=== PATIENT | male | born 1995 | race Caucasian/White ===

== ENCOUNTER 2018-04-12 18:14 | Emergency (ER) | payer OTHER, SELFPAY ==
[2018-04-12 18:15] VITALS: BP 134/81; PULSE 108; RESP 18; TEMP 37.7; O2SAT 100; BMI 28.2
--- NOTE | 2018-04-12 18:27 | ED.VISSUMM ---
- ER Visit Summary Date of Service: 04/12/18 Chief Complaint: Sent to ER from urgent care for treatment of peritonsillar abscess History of Present Illness: The patient is a 23 M who reports onset of illness yesterday with subjective fever, sore throat and apparent nonproductive cough. Denies rhinorrhea, nasal congestion or postnasal drainage. Denies earache. Denies change in voice. Denies difficulty opening or closing his mouth. Denies history rheumatic fever or heart murmur. Denies rash. Denies myalgias arthralgias. He apparently has slept more than normal today. Physical Examination: Vital signs noted and blood pressure is elevated 134/81, heart rate 108 and temperature is 99.9 which is elevated but not a fever. Pupils equal round reactive paradoxic muscle intact. Sclerae anicteric. Conjunctive is not injected. Ears normal. Nares patent no drainage. Uvula is midline. There is slight erythema of the right and left tonsil with swelling in the left tonsil. There is no evidence of peritonsillar cellulitis or abscess. There is no trismus. There is no change in voice. Trach is midline. There is no cervical lymphadenopathy. There is no stridor with auscultation of the neck. Heart is regular without murmur, gallop or rub. Lungs are clear to auscultation. There is no skin lesion or rash noted. Test Results: Patient had a rapid strep at the urgent care and was informed that was negative. Centor score is 0. Emergency Department Course and Treatment: Patient was told he has a viral tonsillitis. There is no evidence of peritonsillar abscess or peritonsillar cellulitis. Treatment Plan: Symptomatic Disposition: Discharged home Impression: Acute tonsillitis, viral This note was generated with [employer] dictation software. It may contain incorrect words, spelling, and punctuation that were not noted in review of the chart prior to signing ED Disposition - Plan for ED Patient: Disposition: Home or Assisted Living Chief Complaint: Sore Throat Instructions: ED Pharyngitis Viral Referrals: Wayne Doyle MD [Primary Care Provider] - 10-14 Days if not better Additional Instructions: Salt water gargles 6 times a day for the next 2-3 days. Use either Chloraseptic spray or Cepastat lozenges for throat discomfort.
[2018-04-12 18:50] VITALS: RESP 18
== END 2018-04-12 18:51 | disposition home or self-care (01) ==
LOC: ED 18:48
PROVIDERS: Emergency Provider Emergency Medicine
DX: J03.80 Acute tonsillitis due to other specified organisms (principal)
CPT/HCPCS: 99283